=== PATIENT | male | born 1990 | race American Indian/Alaskan Native ===

== ENCOUNTER 2020-05-11 07:30 | Emergency (ER) | payer SELFPAY ==
[2020-05-11 08:12] VITALS: BP 123/87
[2020-05-11] MEDS ORDERED: IBUPROFEN 800 MG TAB PO ONE (08:59)
--- NOTE | 2020-05-11 09:05 | Emergency Department Report ---
ED ENT HPI - General Chief complaint: Dental/Oral Stated complaint: SWOLLEN FACE Source: patient Mode of arrival: Ambulatory Limitations: No Limitations - History of Present Illness Initial comments: This is a 30-year-old male presents to the emergency room complaining right side facial swelling and toothache. He woke up with his face swollen . He denies any difficulty chewing or swallowing .he denies any past medical history and has no known allergies. He has not taken any medications at home for toothache. MD complaint: tooth pain -: Sudden Location: tooth # (30) Severity: moderate Severity scale (0 -10): 8 Quality: aching, constant Consistency: constant Improves with: none Worsens with: none Context- Dental: history of dental caries, poor dental care Associated Symptoms: other (FACIAL SWELLING). denies: fever, cough, pain with swallowing, sore throat - Related Data Previous Rx's Medication Instructions Recorded Last Taken Type Acetaminophen/Codeine [Tylenol 1 tab PO Q6H PRN #15 tab 05/11/20 Unknown Rx /Codeine # 3 tab] Amoxicillin [Trimox] 500 mg PO TID 10 Days #30 cap 05/11/20 Unknown Rx Ibuprofen [Motrin] 600 mg PO Q8H PRN #20 tablet 05/11/20 Unknown Rx Allergies Allergy/AdvReac Type Severity Reaction Status Date / Time No Known Allergies Allergy Unverified 05/11/20 07:52 ED Dental HPI - General Chief complaint: Dental/Oral Stated complaint: SWOLLEN FACE Source: patient Mode of arrival: Ambulatory Limitations: No Limitations - History of Present Illness MD complaint: tooth pain - Related Data Previous Rx's Medication Instructions Recorded Last Taken Type Acetaminophen/Codeine [Tylenol 1 tab PO Q6H PRN #15 tab 05/11/20 Unknown Rx /Codeine # 3 tab] Amoxicillin [Trimox] 500 mg PO TID 10 Days #30 cap 05/11/20 Unknown Rx Ibuprofen [Motrin] 600 mg PO Q8H PRN #20 tablet 05/11/20 Unknown Rx Allergies Allergy/AdvReac Type Severity Reaction Status Date / Time No Known Allergies Allergy Unverified 05/11/20 07:52 ED Review of Systems ROS: Stated complaint: SWOLLEN FACE Other details as noted in HPI Comment: All other systems reviewed and negative Constitutional: denies: chills, fever Eyes: denies: eye pain, eye discharge ENT: dental pain, other (right side facial swelling). denies: ear pain, throat pain, hearing loss Respiratory: denies: cough, shortness of breath, SOB with exertion ED Past Medical Hx - Past Medical History Previous Medical History?: No - Surgical History Past Surgical History?: No - Medications Home Medications: Home Medications Medication Instructions Recorded Confirmed Last Taken Type Acetaminophen/Codeine [Tylenol 1 tab PO Q6H PRN #15 tab 05/11/20 Unknown Rx /Codeine # 3 tab] Amoxicillin [Trimox] 500 mg PO TID 10 Days #30 cap 05/11/20 Unknown Rx Ibuprofen [Motrin] 600 mg PO Q8H PRN #20 tablet 05/11/20 Unknown Rx ED Physical Exam - General Limitations: No Limitations General appearance: alert, in no apparent distress - Head Head exam: Present: atraumatic - Eye Eye exam: Present: normal appearance. Absent: conjunctival injection - ENT ENT exam: Present: mucous membranes moist, TM's normal bilaterally, other (right side facial swelling. Mild swelling arount teeth # 30. Multiple dental caries. Opens his mouth with ease) - Neck Neck exam: Present: full ROM. Absent: lymphadenopathy - Respiratory Respiratory exam: Present: normal lung sounds bilaterally. Absent: respiratory distress, wheezes - Cardiovascular Cardiovascular Exam: Present: regular rate, normal heart sounds - Extremities Exam Extremities exam: Present: normal inspection, full ROM - Neurological Exam Neurological exam: Present: alert, oriented X3 - Psychiatric Psychiatric exam: Present: normal affect - Skin Skin exam: Present: warm, dry, intact, normal color ED Course Vital Signs 05/11/20 05/11/20 08:12 09:23 Temperature 98.2 F Pulse Rate 71 Respiratory 16 18 Rate Blood Pressure 123/87 [Right] O2 Sat by Pulse 99 Oximetry - Reevaluation(s) Reevaluation #1: 05/11/20 09:05 Motrin 800 mg p.o. given for pain ED Medical Decision Making - Medical Decision Making This gentleman with known dental caries now with facial swelling to the right side of his jaw and mild swelling to tooth #30. The plan is to discharge patient with emphasis on following up with a dentist as soon as possible. Patient prescribed amoxicillin 500 mg 3 times daily and Tylenol 3 for pain. Critical Care Time: No Critical care attestation.: If time is entered above; I have spent that time in minutes in the direct care of this critically ill patient, excluding procedure time. ED Disposition Clinical Impression: Dental abscess Disposition: TO HOME OR SELFCARE Is pt being admited?: No Does the pt Need Aspirin: No Condition: Stable Instructions: Dental Abscess (ED), Dental Caries (ED) Additional Instructions: Warm salt water gargles at least 3 times a day. Take amoxicillin until finished. Take Tylenol 3 as prescribed and ibuprofen 600 mg as prescribed for pain follow-up with the dentist as soon as possible return to the emergency room for any difficulty swallowing difficulty opening your mouth or worsening swelling. Prescriptions: Amoxicillin [Trimox] 500 mg PO TID 10 Days #30 cap Ibuprofen [Motrin] 600 mg PO Q8H PRN #20 tablet PRN Reason: Pain Acetaminophen/Codeine [Tylenol /Codeine # 3 tab] 1 tab PO Q6H PRN #15 tab PRN Reason: Pain, Moderate (4-6) Time of Disposition: 09:10 (DENTAL REFERRAL GIVEN ) Print Language: SYRIAC
== END 2020-05-11 09:25 | disposition home or self-care (01) ==
LOC: ED 07:30
DX: K04.7 Periapical abscess without sinus (principal); Z79.899 Other long term (current) drug therapy
CPT/HCPCS: 99282